=== PATIENT | male | born 1980 | race Caucasian/White ===

== ENCOUNTER 2024-04-27 14:41 | Emergency (ER) | payer OTHER, SELFPAY ==
[2024-04-27 15:30] VITALS: BP 156/86; PULSE 75; RESP 16; TEMP 36.6; O2SAT 98; BMI 34.5
[2024-04-27 16:36] LABS: Basophils Percent Auto 0.6 % (0-2); Eosinophils Absolute Auto 0.1 X10*3/uL (0.0-0.4); Eosinophils Percent Auto 1.2 % (0-4); Hematocrit 42.7 % (42.0-52.0); Hemoglobin 14.3 g/dl (14.0-18.0); Imm Gran Abs Auto 0.01 X10*3/uL (0.00-0.03); Imm Gran Pct Auto 0.2 % (0.0-0.4); Lymphocytes Absolute Auto 1.7 X10*3/uL (1.2-4.9); Lymphocytes Percent Auto 35.2 % (20-40); MANUAL DIFF FLAG NO; Mean Corpuscular HGB Conc 33.5 g/dl (31.0-36.0); Mean Corpuscular Hemoglobin 28.5 pg (27.0-33.0); Mean Corpuscular Volume 85.2 fL (80.0-98.0); Mean Platelet Volume 9.6 fL (9.4-12.4); Monocytes Absolute Auto 0.6 X10*3/uL (0.1-1.2); Monocytes Percent Auto 11.5 % (2-11); Neutrophils Absolute Auto 2.5 x10*3/uL (2.0-8.3); Neutrophils Percent Auto 51.3 % (45-73); Platelet Count 255 X10*3/uL (160-400); Red Blood Count 5.01 X10*6/uL (4.60-5.80); Red Cell Distribution Width 14.2 % (11.0-16.0); White Blood Count 4.9 X10*3/uL (4.8-10.8)
[2024-04-27 16:50] LABS: Alanine Aminotransferase 29 U/L (0-40); Albumin Level 4.6 g/dL (3.5-5.0); Alkaline Phosphatase 66 U/L (39-117); Anion Gap 12 (12-20); Aspartate Amino Transferase 29 U/L (5-37); Bilirubin Total 0.4 mg/dL (0.0-1.0); Blood Urea Nitrogen 16 mg/dL (9-16); Calcium 9.3 mg/dL (8.4-10.2); Carbon Dioxide 25 mmol/L (22-29); Chloride 107 mmol/L (96-108); Estimated Glomerular Filt Rate > 60; Glucose Random 82 mg/dL (60-115); Potassium 4.3 mmol/L (3.3-5.1); Sodium 140 mmol/L (135-145); Total Protein 8.2 g/dL (6.5-8.0)
[2024-04-27] MEDS: HEPATITIS B IMMUNE GLOBULIN IM (17:32)
[2024-04-27] MEDS: Hepatitis B Imm Globulin 5 ML VIAL IM (17:32)
[2024-04-27 17:33] VITALS: BP 133/98; PULSE 60; RESP 16; TEMP 36.6; O2SAT 97
--- NOTE | 2024-04-27 17:34 | PC.NURSE ---
patient a&ox3, vss, pt medicated per order, labs previously drawn, call park within reach, pt awaiting provider, plan of care ongoing
--- NOTE | 2024-04-27 17:48 | ED.GENADULT ---
HPI - General Adult General Chief complaint: General Medical Stated complaint: Stuck by Needle at Work Time Seen by Provider: 04/27/24 17:47 History of Present Illness ED Provider: Christiano Pozo DO HPI narrative: 43-year-old male with no significant past medical history presents to the ED after an accidental needlestick of the distal anterior thigh. 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 He evaluated the bag and found a that he used needle had stuck him. He denies IV drug use or concern for previous exposures. He denies other injuries. He states he only received 1 of his hepatitis shots when he was a child. Related Data Previous Rx's ?Medication ?Instructions ?Recorded dolutegravir 50 mg tablet 50 mg PO DAILY 28 days #28 tabs 04/27/24 emtricitabine 200 mg-rilpivirine 1 tab PO DAILY 28 days #28 tabs 04/27/24 25 mg-tenofovir disprox 300 mg tablet Allergies Allergy/AdvReac Type Severity Reaction Status Date / Time No Known Allergies Allergy Verified 04/27/24 15:32 Review of Systems Review of Systems: Yes all other systems are reviewed and are negative PMFSH Social History Social History Advance Directives: No Advance Directives Information Provided: Yes Do you have a plan to hurt others: No Plan Physical Exam ED Vital Signs: Vital Signs - 24 hr 04/27/24 15:30 04/27/24 17:33 Temperature 98 F 97.9 F Pulse Rate 75 60 Respiratory Rate 16 16 Blood Pressure 156/86 H 133/98 H Pulse Oximetry 98 97 Oxygen Delivery Method Room Air Room Air BMI result Body Mass Index 34.5 Constitutional: ?Alert, oriented, speaking in full sentences HEENT: ?Normocephalic, atraumatic. Eyes: ?No conjunctival injection, EOMI Neck: ?Supple Respiratory: no increased work of breathing Skin: ?No rash, small punctate lesion without surrounding erythema or induration located over the right distal anterior thigh Neuro: ?Alert and oriented to person, place and time, moves all 4 extremities, no focal deficits Extremities: ?No swelling or tenderness, full range of motion Psych: ?Calm, alert and cooperative, appropriate behavior Medications Administered Discontinued Medications Generic Name Dose Route Start Last Admin Trade Name Freq PRN Reason Stop Dose Admin Hepatitis B Immune Globulin 1 ml 04/27/24 17:15 04/27/24 17:32 Hepatitis B Imm Globulin 1 Ml Vial IM 04/27/24 17:16 1 ml ONCE ONE Administration Hepatitis B Immune Globulin 5 ml 04/27/24 17:15 04/27/24 17:32 Hepatitis B Imm Globulin 5 Ml Vial IM 04/27/24 17:16 5 ml ONCE ONE Administration Medical Decision Making Medical Decision Making MDM Narrative: Patient presenting after a needlestick. Unknown source. Given the risk for hepatitis, immunoglobulin and vaccination provided. Labs grossly unremarkable. Discussed risk and benefits of post exposure prophylaxis and the patient elects to receive the full 28 day course. Workselena's comp has been initiated at his work place. Medications have been started here. Lab Data 04/27/24 16:30 04/27/24 16:30 Labs: Lab Results 04/27/24 Range/Units 16:30 WBC 4.9 (4.8-10.8) X10*3/uL RBC 5.01 (4.60-5.80) X10*6/uL Hgb 14.3 (14.0-18.0) g/dl Hct 42.7 (42.0-52.0) % MCV 85.2 (80.0-98.0) fL MCH 28.5 (27.0-33.0) pg MCHC 33.5 (31.0-36.0) g/dl RDW 14.2 (11.0-16.0) % Plt Count 255 (160-400) X10*3/uL MPV 9.6 (9.4-12.4) fL Immature Gran % (Auto) 0.2 (0.0-0.4) % Neut % (Auto) 51.3 (45-73) % Lymph % (Auto) 35.2 (20-40) % [place] % (Auto) 11.5 H (2-11) % Eos % (Auto) 1.2 (0-4) % Baso % (Auto) 0.6 (0-2) % Lymph # (Auto) 1.7 (1.2-4.9) X10*3/uL [place] # (Auto) 0.6 (0.1-1.2) X10*3/uL Eos # (Auto) 0.1 (0.0-0.4) X10*3/uL Baso # (Auto) 0.0 (0.0-0.2) X10*3/uL Abs Immat Gran (auto) 0.01 (0.00-0.03) X10*3/uL Absolute Neuts (auto) 2.5 (2.0-8.3) x10*3/uL Absolute Nucleated RBC 0.000 (0.0-0.012) X10*3/uL Nucleated RBC % (auto) 0.0 (0.0-0.2) /100WBC Sodium 140 (135-145) mmol/L Potassium 4.3 (3.3-5.1) mmol/L Chloride 107 (96-108) mmol/L Carbon Dioxide 25 (22-29) mmol/L Anion Gap 12 (12-20) BUN 16 (9-16) mg/dL Creatinine 0.78 (0.5-1.4) mg/dL Estim Creat Clear Calc 139.0 Estimated GFR > 60 Random Glucose 82 (60-115) mg/dL Calcium 9.3 (8.4-10.2) mg/dL Total Bilirubin 0.4 (0.0-1.0) mg/dL AST 29 (5-37) U/L ALT 29 (0-40) U/L Alkaline Phosphatase 66 (39-117) U/L Total Protein 8.2 H (6.5-8.0) g/dL Albumin 4.6 (3.5-5.0) g/dL Discharge Plan Discharge Clinical Impression: Needle stick, hypodermic, accidental Patient Disposition: Home, Self-Care Instructions: Needle Stick Injuries (ED) Additional Instructions: These medications will not make you drowsy but can cause impairment to your kidney. Please follow up with your primary care provider for re-evaluation with potential repeat labs as well as discussion about finishing your hepatitis B vaccinations. Prescriptions: New dolutegravir 50 mg tablet 50 mg PO DAILY 28 Days Qty: 28 0RF jwyrurjor-lvaazxpjcsn-qavwl DF 200-25-300 mg tablet 1 tab PO DAILY 28 Days Qty: 28 0RF Rx Instructions: must administer with a meal/food Print Language: Chinese
[2024-04-27 20:27] VITALS: BP 138/98; PULSE 58; RESP 16; TEMP 36.7; O2SAT 96
[2024-04-27 20:45] VITALS: BP 138/98; PULSE 58; RESP 16; TEMP 36.7; O2SAT 96
[2024-04-27] MEDS: Dolutegravir Sodium 50 MG TABLET PO (20:45)
[2024-04-27] MEDS: Emtricitabin/Tenofovir DF 200/300 TABLET 1 TAB PO (20:45)
[2024-04-28 05:55] LABS: HBS Num1 2.04 mIU/mL (0-7.99); HBc Num1 0.19 S/CO (0.00-0.79); HIV AB/AG Nonreactive (Nonreactive); HIV Num 1 0.06 S/CO (0.00-0.99); Hepatitis A Antibody IgM 0.16 Index (0-0.79); Hepatitis B Core Antibody Nonreactive (Nonreactive); Hepatitis B Surface Antigen Negative (Negative); ~HepC Num1 0.34 S/CO (0.00-0.79); ~Hepatitis A Antibody IgM Nonreactive (Nonreactive); ~Hepatitis B Surface Antibody NONREACTIVE (Nonreactive); ~Hepatitis C Antibody Nonreactive (Nonreactive)
== END 2024-04-27 20:45 | disposition home or self-care (01) ==
PROVIDERS: Physician Assistant Medical; Emergency Provider Emergency Medicine
DX: S71.131A Puncture wound without foreign body, right thigh, initial encounter (principal); W26.9XXA Contact with unspecified sharp object(s), initial encounter; Y93.9 Activity, unspecified; Y92.89 Other specified places as the place of occurrence of the external cause; Y99.0 Civilian activity done for income or pay; Z20.828 Contact with and (suspected) exposure to other viral communicable diseases; Z20.5 Contact with and (suspected) exposure to viral hepatitis; Z23 Encounter for immunization; Z79.899 Other long term (current) drug therapy
CPT/HCPCS: 36415; 80053; 85025; 86704; 86706; 86709; 86803; 87340; 87389; 90371; 90471; 90472; 99284